=== PATIENT | male | born 1995 | race Caucasian/White ===

== ENCOUNTER 2017-10-15 21:50 | Emergency (ER) | payer OTHER ==
--- NOTE | 2017-10-15 21:54 | PDOC ---
Suture Removal/Wound Check HPI - History of Present Illness Chief Complaint: Suture/Staple Removal(Here) Stated Complaint: SUTURE REMOVAL Time Seen by Provider: 10/15/17 21:54 History Source: Yes: Patient Exam Limitations: Yes: No Limitations Treated at: [facility] [place] [facility] Date of Last ED visit: 10/07/17 - Previous ED Treatment Type of procedure performed on last visit: Yes: Laceration Repair Tetanus Immunization: Yes: Given at last ED visit Antibiotics Prescribed: No Past History - Past Medical History Allergies/Adverse Reactions: Allergies Allergy/AdvReac Type Severity Reaction Status Date / Time No Known Allergies Allergy Verified 03/30/14 01:12 Home Medications: Ambulatory Orders Acetaminophen [Tylenol] 650 mg PO QID PRN 03/30/14 Cephalexin Monohydrate [Keflex -] 250 mg PO Q8H 5 Days #15 capsule 10/07/17 CVA: No COPD: No - Suicide/Smoking/Psychosocial Hx Smoking History: Never smoked Hx Alcohol Use: Yes ("socially) Drug/Substance Use Hx: No Substance Use Type: None Suture Removal/Wound Check PE - Physical Exam Laceration/Wound Check Symptoms: reports: None Current Severity Level: None Maximum Severity Level: None Pain Localization: None Location of Laceration/Wound: right: Finger Pain Radiation: None *Review of Systems - Review of Systems Able to Perform ROS?: Yes Constitutional: No: Symptoms Reported HEENTM: No: Symptoms Reported Respiratory: No: Symptoms reported Cardiac (ROS): No: Symptoms Reported ABD/GI: No: Symptoms Reported : No: Symptoms Reported Musculoskeletal: No: Symptoms Reported Integumentary: Yes: See HPI Neurological: No: Symptoms reported Endocrine: No: Symptoms Reported Hematologic/Lymphatic: No: Symptoms Reported Medical Decision Making - Medical Decision Making 10/15/17 21:55 A/P: 21yo man for suture removal [address] 4 placed. Pt states 1 self d/c'd wound edges well approximated no erythema present no discharge or drainage present 3 sutures removed without incident Discharge *DC/Admit/Observation/Transfer Diagnosis at time of Disposition: Visit for suture removal - Discharge Dispostion Disposition: HOME Condition at time of disposition: Stable Decision to Admit order: No - Referrals - Patient Instructions Printed Discharge Instructions: DI for Suture Removal - Post Discharge Activity
[2017-10-15 21:57] VITALS: BP 147/80; PULSE 84; TEMP 97.9; BMI 29.0
== END 2017-10-15 22:00 | disposition home or self-care (01) ==
LOC: JER 21:50
DX: Z48.817 Encounter for surgical aftercare following surgery on the skin and subcutaneous tissue (principal); Z48.02 Encounter for removal of sutures
CPT/HCPCS: 99281-25

== ENCOUNTER 2018-11-19 21:50 | Emergency (ER) | payer OTHER | END 2018-11-19 22:39 | disposition home or self-care (01) | LOC: JERFT 21:50 ==